=== PATIENT | female | born 1955 | race Caucasian/White ===

== ENCOUNTER 2020-08-21 11:55 | Day surgery (SDC) | payer OTHER, SELFPAY ==
[~2020-08-21] VITALS: Ht 149.9 cm; Wt 62.1 kg
[2020-08-21] MEDS ORDERED: fentaNYL citrate 0.05 MG/ML VIAL ONE (13:08)
[2020-08-21] MEDS ORDERED: diphenhydrAMINE 50 MG/ML VIAL ONE (13:08)
[2020-08-21] MEDS ORDERED: MIDAZOLAM 5 MG/5 ML VIAL ONE (13:09)
[2020-08-21] MEDS ORDERED: LIDOCAINE 2% 100 MG/5 ML UJET TP ONE (13:09)
[2020-08-21] MEDS ORDERED: MIDAZOLAM 2 MG/2 ML VIAL IVP ONE (14:30)
[2020-08-21] MEDS ORDERED: fentaNYL citrate 0.05 MG/ML VIAL IVP ONE (14:30)
== END 2020-08-21 15:00 | disposition home or self-care (01) ==
LOC: MDS 11:55 → MMU 11:55 → MDS 15:00
PROVIDERS: ATTEND Internal Medicine Gastroenterology
DX: K62.5 Hemorrhage of anus and rectum (principal); K59.00 Constipation, unspecified; E11.9 Type 2 diabetes mellitus without complications; E78.5 Hyperlipidemia, unspecified; I10 Essential (primary) hypertension; Z79.82 Long term (current) use of aspirin; Z79.899 Other long term (current) drug therapy; Z20.828 Contact with and (suspected) exposure to other viral communicable diseases
CPT/HCPCS: 45378; J2250; J3010; U0003; J1200